=== PATIENT | female | born 1975 | race Caucasian/White ===

== ENCOUNTER → 2019-03-05 | Outpatient (CLI) | payer OTHER ==
[~2019-03-05] MED LIST: LORA2 PO
== END | disposition home or self-care (01) ==
LOC: LAB EV 12:47 → LAB SHORT 12:47
DX: N39.0 Urinary tract infection, site not specified (principal)
CPT/HCPCS: 87086

== ENCOUNTER → 2019-04-09 | Outpatient (CLI) | payer OTHER ==
[2019-04-09 14:53] LABS: BASOPHILS ABSOLUTE AUTO 0.07 K/mm3 (0.00-0.23); BASOPHILS PERCENT AUTO 1 % (0-2); EOSINOPHILS ABSOLUTE AUTO 0.03 K/mm3 (0.00-0.68); EOSINOPHILS PERCENT AUTO 0 % (0-6); Hemoglobin 13.4 g/dL (11.5-16.0); IMMATURE GRAN ABSOLUTE AUTO 0.04 K/mm3 (0.00-0.10); IMMATURE GRAN PERCENT AUTO 0 % (0-1); LYMPHOCYTES ABSOLUTE AUTO 2.49 K/mm3 (0.84-5.20); LYMPHOCYTES PERCENT AUTO 25 % (21-46); MONOCYTES ABSOLUTE AUTO 0.55 K/mm3 (0.16-1.47); MONOCYTES PERCENT AUTO 6 % (4-13); Mean Corpuscular HGB 28.6 pg (26.0-34.0); Mean Corpuscular HGB Conc 33.5 g/dL (31.5-36.5); Mean Corpuscular Volume 85 fL (80-100); Mean Platelet Volume 8.6 fL (9.1-12.4); NEUTROPHILS ABSOLUTE AUTO 6.82 K/mm3 (1.96-9.15); NEUTROPHILS PERCENT AUTO 68 % (41-73); Platelet Count 420 K/mm3 (150-400); RDW Coefficient Variation 15.4 % (11.7-14.2); RDW Standard Deviation 47.6 fL (35.1-46.3); Red Blood Cell Count 4.69 M/mm3 (3.80-5.20)
[2019-04-09 15:22] LABS: Alanine Aminotransfer (ALT/SGP 21 U/L (12-78); Albumin, Blood 3.8 g/dL (3.4-5.0); Albumin/Globulin Ratio 1.1 (0.8-1.8); Alk Phos 95 U/L (40-126); Anion Gap 11 mmol/L (6-16); Aspartate Aminotrans (AST/SGOT 20 U/L (12-37); Bilirubin, Total 0.2 mg/dL (0.1-1.0); Blood Urea Nitrogen 12 mg/dL (8-24); Bun/Creatinine Ratio 14.1 (12.0-20.0); CO2, Blood 25 mmol/L (21-32); Chloride, Blood 103 mmol/L (98-108); Creatinine, Blood 0.85 mg/dL (0.40-1.00); Globulin, Blood 3.5 g/dL (2.2-4.0); Glomerular Filtration Rate >60 (60-); Glucose, Blood 94 mg/dL (70-99); Potassium, Blood 3.6 mmol/L (3.5-5.5); Sodium, Blood 139 mmol/L (136-145); Thyroid Stimulating Hormone 1.403 uIU/mL (0.360-4.800); Total Protein, Blood 7.3 g/dL (6.4-8.2)
== END | disposition home or self-care (01) ==
LOC: LAB SHORT 14:45 → LAB EV 14:45
PROVIDERS: Physician Assistant
DX: F41.9 Anxiety disorder, unspecified (principal)
CPT/HCPCS: 80053; 84443; 85025

== ENCOUNTER 2019-04-18 17:04 | Emergency (ER) | payer OTHER ==
[~2019-04-18] VITALS: Ht 160 cm; Wt 92.1 kg
[2019-04-18] MEDS ORDERED: LORA2 PO (18:29)
== END 2019-04-18 19:15 | disposition home or self-care (01) ==
LOC: ER 17:04
DX: F41.9 Anxiety disorder, unspecified (principal); F43.9 Reaction to severe stress, unspecified; F17.210 Nicotine dependence, cigarettes, uncomplicated; Z79.899 Other long term (current) drug therapy
CPT/HCPCS: 99283

== ENCOUNTER → 2019-05-26 | Outpatient (CLI) | payer OTHER ==
[2019-05-26 16:51] LABS: BASOPHILS ABSOLUTE AUTO 0.07 K/mm3 (0.00-0.23); BASOPHILS PERCENT AUTO 1 % (0-2); EOSINOPHILS ABSOLUTE AUTO 0.09 K/mm3 (0.00-0.68); EOSINOPHILS PERCENT AUTO 1 % (0-6); Hemoglobin 12.9 g/dL (11.5-16.0); IMMATURE GRAN ABSOLUTE AUTO 0.05 K/mm3 (0.00-0.10); IMMATURE GRAN PERCENT AUTO 0 % (0-1); LYMPHOCYTES ABSOLUTE AUTO 2.64 K/mm3 (0.84-5.20); LYMPHOCYTES PERCENT AUTO 21 % (21-46); MONOCYTES ABSOLUTE AUTO 0.75 K/mm3 (0.16-1.47); MONOCYTES PERCENT AUTO 6 % (4-13); Mean Corpuscular HGB 28.2 pg (26.0-34.0); Mean Corpuscular HGB Conc 32.3 g/dL (31.5-36.5); Mean Corpuscular Volume 87 fL (80-100); Mean Platelet Volume 8.5 fL (9.1-12.4); NEUTROPHILS PERCENT AUTO 71 % (41-73); Platelet Count 422 K/mm3 (150-400); RDW Coefficient Variation 15.9 % (11.7-14.2); RDW Standard Deviation 49.6 fL (35.1-46.3); Red Blood Cell Count 4.58 M/mm3 (3.80-5.20)
[2019-05-26 17:14] LABS: Alanine Aminotransfer (ALT/SGP 24 U/L (12-78); Albumin, Blood 3.8 g/dL (3.4-5.0); Albumin/Globulin Ratio 0.9 (0.8-1.8); Alk Phos 101 U/L (40-126); Anion Gap 10 mmol/L (6-16); Aspartate Aminotrans (AST/SGOT 21 U/L (12-37); Bilirubin, Total 0.1 mg/dL (0.1-1.0); Blood Urea Nitrogen 8 mg/dL (8-24); Bun/Creatinine Ratio 8.7 (12.0-20.0); CO2, Blood 25 mmol/L (21-32); Calcium, Blood 9.6 mg/dL (8.5-10.1); Chloride, Blood 105 mmol/L (98-108); Creatinine, Blood 0.92 mg/dL (0.40-1.00); Globulin, Blood 4.2 g/dL (2.2-4.0); Glomerular Filtration Rate >60 (60-); Glucose, Blood 84 mg/dL (70-99); Potassium, Blood 3.8 mmol/L (3.5-5.5); Sodium, Blood 140 mmol/L (136-145); Thyroid Stimulating Hormone 0.893 uIU/mL (0.360-4.800)
== END | disposition home or self-care (01) ==
LOC: LAB EV 16:45 → LAB SHORT 16:45
PROVIDERS: Physician Assistant Medical
DX: R53.83 Other fatigue (principal)
CPT/HCPCS: 80053; 84443; 85025; 85651

== ENCOUNTER → 2020-02-23 | Outpatient (CLI) | payer OTHER ==
[~2020-02-23] MED LIST changes: +Ativan1 MG PO; +BRINTELLIX5 MG PO; +BUSP10 PO; +Prozac40 MG PO
[2020-02-23 16:32] LABS: BASOPHILS ABSOLUTE AUTO 0.04 K/mm3 (0.00-0.23); BASOPHILS PERCENT AUTO 0 % (0-2); EOSINOPHILS ABSOLUTE AUTO 0.05 K/mm3 (0.00-0.68); EOSINOPHILS PERCENT AUTO 1 % (0-6); Hematocrit 37.7 % (33.0-51.0); Hemoglobin 12.6 g/dL (11.5-16.0); IMMATURE GRAN ABSOLUTE AUTO 0.03 K/mm3 (0.00-0.10); IMMATURE GRAN PERCENT AUTO 0 % (0-1); LYMPHOCYTES ABSOLUTE AUTO 2.93 K/mm3 (0.84-5.20); LYMPHOCYTES PERCENT AUTO 29 % (21-46); MONOCYTES ABSOLUTE AUTO 0.49 K/mm3 (0.16-1.47); MONOCYTES PERCENT AUTO 5 % (4-13); Mean Corpuscular HGB 28.5 pg (26.0-34.0); Mean Corpuscular HGB Conc 33.4 g/dL (31.5-36.5); Mean Corpuscular Volume 85 fL (80-100); Mean Platelet Volume 8.6 fL (9.1-12.4); NEUTROPHILS ABSOLUTE AUTO 6.46 K/mm3 (1.96-9.15); NEUTROPHILS PERCENT AUTO 65 % (41-73); Platelet Count 495 K/mm3 (150-400); RDW Coefficient Variation 15.1 % (11.7-14.2); RDW Standard Deviation 46.5 fL (35.1-46.3); Red Blood Cell Count 4.42 M/mm3 (3.80-5.20)
== END | disposition home or self-care (01) ==
LOC: LAB SHORT 16:28 → LAB EV 16:28
PROVIDERS: Physician Assistant Medical
DX: N92.1 Excessive and frequent menstruation with irregular cycle (principal); M35.3 Polymyalgia rheumatica
CPT/HCPCS: 85025; 85651

== ENCOUNTER 2020-03-13 14:17 | Emergency (ER) | payer OTHER ==
[~2020-03-13] VITALS: Ht 160 cm; Wt 90.3 kg
[~2020-03-13 14:17] MED LIST changes: -Ativan1 MG PO; -BRINTELLIX5 MG PO; -BUSP10 PO; -Prozac40 MG PO
[2020-03-13] MEDS ORDERED: BUSP10 PO ×2 (14:54→17:29)
[2020-03-13] MEDS ORDERED: BRINTELLIX5 MG PO ×2 (15:45→17:29)
[2020-03-13] MEDS ORDERED: Prozac40 MG PO (15:46)
[2020-03-13] MEDS ORDERED: Ativan1 MG PO (17:29)
== END 2020-03-13 17:39 | disposition home or self-care (01) ==
LOC: ER 14:17
DX: F41.9 Anxiety disorder, unspecified (principal); F41.0 Panic disorder [episodic paroxysmal anxiety]; F17.200 Nicotine dependence, unspecified, uncomplicated; Z79.899 Other long term (current) drug therapy
CPT/HCPCS: 99283

== ENCOUNTER 2020-04-05 01:46 | Emergency (ER) | payer OTHER ==
[~2020-04-05] VITALS: Ht 160 cm; Wt 91.5 kg
[~2020-04-05 01:46] MED LIST changes: +Ativan1 MG PO; +BRINTELLIX5 MG PO; +BUSP10 PO; +Prozac40 MG PO
== END 2020-04-05 03:00 | disposition home or self-care (01) ==
LOC: ER 01:46
DX: F41.0 Panic disorder [episodic paroxysmal anxiety] (principal); F41.9 Anxiety disorder, unspecified; F17.210 Nicotine dependence, cigarettes, uncomplicated; Z79.899 Other long term (current) drug therapy
CPT/HCPCS: 99284

== ENCOUNTER 2020-07-09 01:42 | Emergency (ER) | payer OTHER ==
[~2020-07-09] VITALS: Ht 160 cm; Wt 79.4 kg
[2020-07-09 02:28] LABS: BASOPHILS ABSOLUTE AUTO 0.07 K/mm3 (0.00-0.23); BASOPHILS PERCENT AUTO 1 % (0-2); EOSINOPHILS ABSOLUTE AUTO 0.25 K/mm3 (0.00-0.68); EOSINOPHILS PERCENT AUTO 2 % (0-6); Hematocrit 35.7 % (33.0-51.0); Hemoglobin 11.5 g/dL (11.5-16.0); IMMATURE GRAN ABSOLUTE AUTO 0.08 K/mm3 (0.00-0.10); IMMATURE GRAN PERCENT AUTO 1 % (0-1); LYMPHOCYTES ABSOLUTE AUTO 3.05 K/mm3 (0.84-5.20); LYMPHOCYTES PERCENT AUTO 22 % (21-46); MONOCYTES ABSOLUTE AUTO 0.56 K/mm3 (0.16-1.47); MONOCYTES PERCENT AUTO 4 % (4-13); Mean Corpuscular HGB 27.4 pg (26.0-34.0); Mean Corpuscular HGB Conc 32.2 g/dL (31.5-36.5); Mean Corpuscular Volume 85 fL (80-100); Mean Platelet Volume 8.5 fL (9.1-12.4); NEUTROPHILS ABSOLUTE AUTO 10.14 K/mm3 (1.96-9.15); NEUTROPHILS PERCENT AUTO 72 % (41-73); Platelet Count 407 K/mm3 (150-400); RDW Coefficient Variation 16.7 % (11.7-14.2); RDW Standard Deviation 52.3 fL (35.1-46.3); Red Blood Cell Count 4.19 M/mm3 (3.80-5.20); White Blood Cell Count 14.15 K/mm3 (4.00-11.30)
[2020-07-09 02:45] LABS: Alanine Aminotransfer (ALT/SGP 23 U/L (12-78); Albumin, Blood 3.3 g/dL (3.4-5.0); Albumin/Globulin Ratio 0.8 (0.8-1.8); Alk Phos 104 U/L (50-136); Anion Gap 4 mmol/L (6-16); Aspartate Aminotrans (AST/SGOT 15 U/L (12-37); Bilirubin, Total 0.2 mg/dL (0.1-1.0); Blood Urea Nitrogen 11 mg/dL (8-24); Bun/Creatinine Ratio 13.4 (12.0-20.0); CO2, Blood 30 mmol/L (21-32); Calcium, Blood 8.5 mg/dL (8.5-10.1); Chloride, Blood 110 mmol/L (98-108); Creatinine, Blood 0.82 mg/dL (0.40-1.00); Ethanol (Alcohol), Blood, Med <3 mg/dL; Globulin, Blood 3.9 g/dL (2.2-4.0); Glomerular Filtration Rate >60 (60-); Glucose, Blood 85 mg/dL (70-99); Potassium, Blood 3.4 mmol/L (3.5-5.5); Sodium, Blood 144 mmol/L (136-145); Total Protein, Blood 7.2 g/dL (6.4-8.2)
[2020-07-09] MEDS ORDERED: LIDO700A20 TOP (04:43)
[2020-07-09] MEDS ORDERED: IBU600 MG PO (04:43)
[2020-08-11] MEDS ORDERED: ONDA4ODT (19:24)
[2020-08-11] MEDS ORDERED: LORA.5 (19:24)
[2020-08-11] MEDS ORDERED: TRAM50 (19:24)
== END 2020-07-09 05:25 | disposition home or self-care (01) ==
LOC: ER 01:42
PROVIDERS: Emergency Medicine
DX: S09.90XA Unspecified injury of head, initial encounter (principal); M54.2 Cervicalgia; F17.210 Nicotine dependence, cigarettes, uncomplicated; Z79.899 Other long term (current) drug therapy; Y04.8XXA Assault by other bodily force, initial encounter
CPT/HCPCS: 70450; 72125; 80053; 85025; 99284-25; A9270; G0480

== ENCOUNTER 2020-09-09 21:33 | Emergency (ER) | payer OTHER ==
[~2020-09-09] VITALS: Ht 160 cm; Wt 72.6 kg
[~2020-09-09 21:33] MED LIST changes: +IBU600 MG PO; +LIDO700A20 TOP; +LORA.5; +ONDA4ODT; +TRAM50
[2020-09-10] MEDS ORDERED: OLAN5 PO (00:11)
[2020-09-10 00:55] LABS: Source, Urine Clean Catch
[2020-09-10 01:01] LABS: Bilirubin, Urine Neg (Neg); Blood, Urine Neg (Neg); Glucose Qualitative, Urine Neg (Neg); Ketones, Urine Neg (Neg); Leukocyte Esterase, Urine 2+ (Neg); Nitrite, Urine Neg (Neg); Protein, Urine Neg (Neg); Specific Gravity, Urine 1.015 (1.003-1.022); Urobilinogen, Urine NORM (Normal); pH, Urine 6.5 (5.0-8.0)
[2020-09-10 01:04] LABS: Appearance, Urine Clear (Clear); Color, Urine Yellow (P-Yellow)
[2020-09-10 01:07] LABS: Bacteria Mod /hpf; Red Blood Cells, Urine Not Seen /hpf (0-2); Squamous Epithelial Cells Mod /hpf (Few); Yeast/Fungi Urine Few /hpf
[2020-09-10] MEDS ORDERED: DIAZ2 PO (01:09)
[2020-09-10] MEDS ORDERED: ALLERCLEAR10 MG PO (01:09)
== END 2020-09-10 01:23 | disposition home or self-care (01) ==
LOC: ER 21:33
PROVIDERS: Student in an Organized Health Care Education/Training Program
DX: S29.012A Strain of muscle and tendon of back wall of thorax, initial encounter (principal); S00.12XA Contusion of left eyelid and periocular area, initial encounter; M54.2 Cervicalgia; Z79.899 Other long term (current) drug therapy; Y04.0XXA Assault by unarmed brawl or fight, initial encounter; Y99.8 Other external cause status
CPT/HCPCS: 81001; 87086; 93005; 93010; 99284-25; A9270

== ENCOUNTER 2022-09-22 10:51 | Emergency (ER) | payer OTHER ==
[~2022-09-22] VITALS: Ht 160 cm; Wt 99.8 kg
[~2022-09-22 10:51] MED LIST changes: +ALLERCLEAR10 MG PO; +DIAZ2 PO; +OLAN5 PO
[2022-09-22 10:55] VITALS: BP 128/78
[2022-09-22] MEDS ORDERED: BRINTELLIX20 MG PO (10:57)
[2022-09-22] MEDS ORDERED: LAMICTAL200 MG PO (10:57)
== END 2022-09-22 12:29 | disposition home or self-care (01) ==
LOC: ER 10:51
DX: K02.9 Dental caries, unspecified (principal); F17.200 Nicotine dependence, unspecified, uncomplicated
CPT/HCPCS: 64400; 99282-25

== ENCOUNTER 2023-02-22 06:29 | Emergency (ER) | payer OTHER ==
[~2023-02-22] VITALS: Ht 160 cm; Wt 81.7 kg
[~2023-02-22 06:29] MED LIST changes: +BRINTELLIX20 MG PO; +LAMICTAL200 MG PO
[2023-02-22 06:49] VITALS: BP 133/91
== END 2023-02-22 09:20 ==
LOC: ER 06:29
DX: S09.90XA Unspecified injury of head, initial encounter (principal); S16.1XXA Strain of muscle, fascia and tendon at neck level, initial encounter; Y04.8XXA Assault by other bodily force, initial encounter; F43.10 Post-traumatic stress disorder, unspecified; Z79.899 Other long term (current) drug therapy
CPT/HCPCS: 70450; 72125; 99285-25

== ENCOUNTER 2023-04-10 22:21 | Emergency (ER) | payer OTHER ==
[~2023-04-10] VITALS: Ht 157.5 cm; Wt 81.7 kg
[2023-04-11] VITALS: BP 114/72
[2023-04-11] MEDS ORDERED: ONDA4ODT MM (02:09)
== END 2023-04-11 02:35 | disposition home or self-care (01) ==
LOC: ER 22:21
DX: R51.9 Headache, unspecified (principal); R11.0 Nausea; R42 Dizziness and giddiness; H53.8 Other visual disturbances; R93.0 Abnormal findings on diagnostic imaging of skull and head, not elsewhere classified; Z87.820 Personal history of traumatic brain injury; Z79.899 Other long term (current) drug therapy
CPT/HCPCS: 70450; 96365; 96366; 96375; 99284-25; A9270; J1100; J1200; J1790; J1885; J3475

== ENCOUNTER 2023-04-15 17:48 | Emergency (ER) | payer OTHER ==
[~2023-04-15] VITALS: Ht 157.5 cm; Wt 84.5 kg
[~2023-04-15 17:48] MED LIST changes: +ONDA4ODT MM
[2023-04-15 17:50] VITALS: BP 103/79
== END 2023-04-15 19:20 | disposition left against medical advice (07) ==
LOC: ER 17:48
DX: R51.9 Headache, unspecified (principal); Z53.21 Procedure and treatment not carried out due to patient leaving prior to being seen by health care provider
CPT/HCPCS: 99281

== ENCOUNTER 2023-04-17 02:34 | Emergency (ER) | payer OTHER ==
[~2023-04-17] VITALS: Ht 167.6 cm; Wt 68.0 kg
[2023-04-17 02:53] VITALS: BP 146/88
== END 2023-04-17 04:50 | disposition home or self-care (01) ==
LOC: ER 02:34
DX: R45.4 Irritability and anger (principal); R45.1 Restlessness and agitation; Z71.1 Person with feared health complaint in whom no diagnosis is made; F43.10 Post-traumatic stress disorder, unspecified; Z87.820 Personal history of traumatic brain injury; Z79.899 Other long term (current) drug therapy
CPT/HCPCS: 99282

== ENCOUNTER 2023-04-24 15:20 | Emergency (ER) | payer OTHER ==
[~2023-04-24] VITALS: Ht 170.2 cm; Wt 74.8 kg
[2023-04-24 15:34] VITALS: BP 112/64
== END 2023-04-24 17:30 | disposition home or self-care (01) ==
LOC: ER 15:20
DX: J02.0 Streptococcal pharyngitis (principal); M25.551 Pain in right hip; Z79.899 Other long term (current) drug therapy
CPT/HCPCS: 72170; 87430; 96372; 99284-25; A9270; J0561; J1885

== ENCOUNTER → 2023-05-21 | Outpatient (CLI) | payer OTHER ==
[~2023-05-21] MED LIST changes: +Hydroxyzine HCl25 MG
[2023-05-21 19:44] LABS: BASOPHILS ABSOLUTE AUTO 0.04 K/mm3 (0.00-0.23); BASOPHILS PERCENT AUTO 1 % (0-2); EOSINOPHILS ABSOLUTE AUTO 0.14 K/mm3 (0.00-0.68); EOSINOPHILS PERCENT AUTO 2 % (0-6); Hematocrit 37.8 % (33.0-51.0); Hemoglobin 12.2 g/dL (11.5-16.0); IMMATURE GRAN ABSOLUTE AUTO 0.02 K/mm3 (0.00-0.10); IMMATURE GRAN PERCENT AUTO 0 % (0-1); LYMPHOCYTES ABSOLUTE AUTO 2.83 K/mm3 (0.84-5.20); LYMPHOCYTES PERCENT AUTO 37 % (21-46); MONOCYTES ABSOLUTE AUTO 0.37 K/mm3 (0.16-1.47); MONOCYTES PERCENT AUTO 5 % (4-13); Mean Corpuscular HGB 28.4 pg (26.0-34.0); Mean Corpuscular HGB Conc 32.3 g/dL (31.5-36.5); Mean Corpuscular Volume 88 fL (80-100); Mean Platelet Volume 9.9 fL (9.1-12.4); NEUTROPHILS ABSOLUTE AUTO 4.21 K/mm3 (1.96-9.15); NEUTROPHILS PERCENT AUTO 55 % (41-73); Platelet Count 392 K/mm3 (150-400); RDW Standard Deviation 44.9 fL (35.1-46.3); White Blood Cell Count 7.61 K/mm3 (4.00-11.30)
[2023-05-21 19:45] LABS: C-REACTIVE PROTEIN, EXT RANGE 0.521 mg/dL (0.000-0.300)
[2023-05-21 19:55] LABS: CHOL/HDL RATIO 3.2; Cholesterol 196 mg/dL (50-200); HDL Cholesterol 61 mg/dL (>39); LDL/HDL RATIO 1.9; Low Density Lipoprotein Chol 118 mg/dL (0-110); Triglycerides 83 mg/dL (30-160); Very Low Density Lipoprot Chol 16 mg/dL (6-32)
[2023-05-23 08:14] LABS: A/G RATIO 1.9 (1.2-2.2); ALKALINE PHOSPHATASE, S 137 IU/L (44-121); ALT (SGPT) 21 IU/L (0-32); AST (SGOT) 23 IU/L (0-40); BILIRUBIN, TOTAL <0.2 mg/dL (0.0-1.2); BUN 11 mg/dL (6-24); BUN/CREATININE RATIO 14 (9-23); CALCIUM, SERUM 9.4 mg/dL (8.7-10.2); CARBON DIOXIDE, TOTAL 22 mmol/L (20-29); CHLORIDE, SERUM 107 mmol/L (96-106); CREATININE, SERUM 0.81 mg/dL (0.57-1.00); GLOBULIN, TOTAL 2.4 g/dL (1.5-4.5); GLUCOSE, SERUM 99 mg/dL (70-99); POTASSIUM, SERUM 4.1 mmol/L (3.5-5.2); PROTEIN, TOTAL, SERUM 6.9 g/dL (6.0-8.5); SODIUM, SERUM 143 mmol/L (134-144)
[2023-05-24 08:16] LABS: HEPATITIS C AB CIA INTERP Negative (Negative); HEPATITIS C ANTIBODY CIA INDEX 0.05 IV
[2023-05-24 08:36] LABS: HEPATITIS B SURFACE ANTIGEN Negative (Negative)
[2023-05-24 10:22] LABS: HIV 1,2 COMBO ANTIGEN/ANTIBODY Negative (Negative)
[2023-05-24 22:15] LABS: APTIMA MEDIA TYPE MultiTest Swab; C. TRACHOMATIS BY TMA Negative (Negative); N. GONORRHOEAE BY TMA Negative (Negative); SPECIMEN SOURCE Vaginal; T. VAGINALIS BY TMA Negative (Negative)
== END ==
LOC: LAB SHORT 18:36 → LAB 18:36
PROVIDERS: Registered Nurse Community Health
DX: Z11.3 Encounter for screening for infections with a predominantly sexual mode of transmission (principal); Z20.2 Contact with and (suspected) exposure to infections with a predominantly sexual mode of transmission; M35.3 Polymyalgia rheumatica; E66.9 Obesity, unspecified
CPT/HCPCS: 80053; 80061; 82550; 84443; 85025; 85651; 86140; 86592; 86803; 87340; 87389; 87491; 87591; 87661

== ENCOUNTER 2023-05-25 15:49 | Emergency (ER) | payer OTHER ==
[~2023-05-25] VITALS: Ht 172.7 cm; Wt 74.8 kg
[~2023-05-25 15:49] MED LIST changes: -Hydroxyzine HCl25 MG
[2023-05-25 16:32] VITALS: BP 144/104
[2023-05-26] MEDS ORDERED: Hydroxyzine HCl25 MG (01:05)
== END 2023-05-25 16:42 | disposition left against medical advice (07) ==
LOC: ER 15:49
DX: Z00.00 Encounter for general adult medical examination without abnormal findings (principal); Z53.29 Procedure and treatment not carried out because of patient's decision for other reasons; R45.6 Violent behavior; F43.10 Post-traumatic stress disorder, unspecified; F17.200 Nicotine dependence, unspecified, uncomplicated; Z79.899 Other long term (current) drug therapy
CPT/HCPCS: 99283

== ENCOUNTER 2023-05-26 00:26 | Emergency (ER) | payer OTHER ==
[~2023-05-26] VITALS: Ht 157.5 cm; Wt 90.7 kg
[2023-05-26 00:58] VITALS: BP 125/84
[2023-05-26] MEDS ORDERED: Hydroxyzine HCl25 MG (01:05)
== END 2023-05-26 01:35 | disposition home or self-care (01) ==
LOC: ER 00:26
DX: S09.90XA Unspecified injury of head, initial encounter (principal); F16.90 Hallucinogen use, unspecified, uncomplicated; X58.XXXA Exposure to other specified factors, initial encounter; Z79.899 Other long term (current) drug therapy
CPT/HCPCS: 99284